=== PATIENT | male | born 1995 | race Caucasian/White ===

== ENCOUNTER 2025-01-21 16:47 | Inpatient (IN) | payer OTHER ==
[~2025-01-21] VITALS: Ht 175.3 cm; Wt 75.0 kg
[2025-01-21 10:12] VITALS: BP 113/73; PULSE 95; RESP 18; TEMP 98.3; O2SAT 99
[2025-01-21 18:21] LABS: BASOPHILS % (AUTO) 0.3 % (0.0-2.0); EOSINOPHILS % (AUTO) 0.2 % (1.0-6.0); HEMOGLOBIN 14.9 g/dL (13.5-17.5); LYMPHOCYTES # (AUTO) 1.2 K/uL (1.0-4.8); LYMPHOCYTES % (AUTO) 16.6 % (22.0-44.0); MEAN CORPUSCULAR HEMOGLOBIN 30.1 pg (26.0-34.0); MEAN CORPUSCULAR HGB CONC 34.7 G/dL (31.0-37.0); MEAN CORPUSCULAR VOLUME 87 fL (80-100); MONOCYTES # (AUTO) 0.5 K/uL (0.1-1.0); MONOCYTES % (AUTO) 7.2 % (2.0-9.0); NEUTROPHILS # (AUTO) 5.3 K/uL (1.8-7.7); NEUTROPHILS % (AUTO) 75.7 % (40.0-70.0); PLATELET COUNT (AUTO) 265 K/uL (150-450); RED BLOOD CELL COUNT(AUTO) 4.96 MIL/uL (4.50-5.90)
[2025-01-21 18:33] LABS: ANION GAP 8 mmol/L (8-16); CALCIUM, TOTAL 9.4 mg/dL (8.8-10.5); CARBON DIOXIDE 26 mmol/L (22-29); CHLORIDE 103 mmol/L (98-107); CREATININE 0.88 mg/dL (0.60-1.30); GLOMERULAR FILTR. RATE CALC > 60 mL/min (>60); GLUCOSE,RANDOM 104 mg/dL (70-110); POTASSIUM 3.5 mmol/L (3.5-5.1); SODIUM SERUM 137 mmol/L (136-145); UREA NITROGEN, BLOOD 16 mg/dL (7-18)
[2025-01-21] MEDS: LORazepam 2 MG/ML VIAL IVP ONE (20:12)
[2025-01-21] MEDS: ONDANSETRON HCL 4 MG/2 ML VIAL IVP ONE (20:13)
[2025-01-21] MEDS ORDERED: LOPERAMIDE HCL 2 MG CAPSULE PO PRN (21:15)
[2025-01-21] MEDS ORDERED: DICYCLOMINE HCL 10 MG CAPSULE PO PRN (21:15)
[2025-01-22] MEDS: LORazepam 2 MG/ML VIAL IVP PRN (00:26)
[2025-01-22 06:06] VITALS: BP 126/73; PULSE 78; RESP 18; TEMP 97.9; O2SAT 96
[2025-01-22] MEDS ORDERED: INFLUENZA VIRUS VACCINE TVS (6MO+) 2024-25/PF 45 MCG/0.5 ML SYRINGE IM. ONE (06:45)
[2025-01-22 13:37] LABS: PH,URINE DRUG SCREEN 6.5 (5.0-8.0)
[2025-01-22 13:42] LABS: ALCOHOL, URINE DRUG SCREEN NEGATIVE (NEGATIVE); AMPHET/METH SCREEN,URINE POSITIVE (NEGATIVE); BARBITURATE SCREEN, URINE NEGATIVE (NEGATIVE); BENZODIAZEPINES SCREEN,URINE NEGATIVE (NEGATIVE); CANNABINOID SCREEN,URINE NEGATIVE (NEGATIVE); COCAINE SCREEN,URINE NEGATIVE (NEGATIVE); METHADONE SCREEN, URINE NEGATIVE (NEGATIVE); OPIATE SCREEN,URINE NEGATIVE (NEGATIVE); PHENCYCLIDINE SCREEN,URINE NEGATIVE (NEGATIVE)
[2025-01-22 14:04] VITALS: BP 120/68; PULSE 71; RESP 18; TEMP 98.1; O2SAT 98
[2025-01-22 19:28] VITALS: BP 122/72; PULSE 87; RESP 20; TEMP 98.3; O2SAT 98
[2025-01-22] MEDS: TEMAZEPAM 15 MG CAPSULE PO SCH (20:46)
[2025-01-23 04:31] VITALS: BP 105/57; PULSE 65; RESP 18; TEMP 97.8; O2SAT 97
[2025-01-23] MEDS: HydrOXYzine HCL 25 MG TABLET PO PRN (16:49)
[2025-01-23] MEDS: METOCLOPRAMIDE HCL 5 MG/ML 2 ML VIAL IVP PRN (17:58)
[2025-01-23 20:18] VITALS: BP 111/63; PULSE 96; RESP 18; TEMP 98.8; O2SAT 96
[2025-01-24 05:15] VITALS: BP 108/55; PULSE 68; RESP 18; TEMP 97.8; O2SAT 96
[2025-01-24 08:26] VITALS: BP 122/76; PULSE 58; RESP 18; TEMP 98; O2SAT 99
== END 2025-01-24 16:50 | DRG 897 ==
LOC: EMS 16:49 → EDH 21:15 → 6N 22:04
PROVIDERS: ADMIT Internal Medicine; ATTEND Internal Medicine
DX: F11.23 Opioid dependence with withdrawal (principal); G47.00 Insomnia, unspecified; Z91.013 Allergy to seafood
CPT/HCPCS: 80048; 80307; 85025; 96374; 96375; 96376; 99285; J2060; J2405; J2765

== ENCOUNTER 2025-02-19 21:19 | Inpatient (IN) | payer OTHER ==
[~2025-02-19] VITALS: Ht 177.8 cm; Wt 75.7 kg
[2025-02-19 23:33] LABS: BASOPHILS % (AUTO) 0.4 % (0.0-2.0); EOSINOPHILS % (AUTO) 4.1 % (1.0-6.0); HEMATOCRIT 44.4 % (41-53); HEMOGLOBIN 14.8 g/dL (13.5-17.5); LYMPHOCYTES # (AUTO) 1.9 K/uL (1.0-4.8); MEAN CORPUSCULAR HEMOGLOBIN 29.2 pg (26.0-34.0); MEAN CORPUSCULAR HGB CONC 33.3 G/dL (31.0-37.0); MEAN CORPUSCULAR VOLUME 88 fL (80-100); MONOCYTES # (AUTO) 0.4 K/uL (0.1-1.0); MONOCYTES % (AUTO) 8.3 % (2.0-9.0); NEUTROPHILS # (AUTO) 2.2 K/uL (1.8-7.7); NEUTROPHILS % (AUTO) 47.2 % (40.0-70.0); PLATELET COUNT (AUTO) 292 K/uL (150-450); RED BLOOD CELL COUNT(AUTO) 5.07 MIL/uL (4.50-5.90); RED CELL DISTRIBUTION WIDTH 12.8 % (11.5-14.5); WHITE BLOOD COUNT (AUTO) 4.7 K/uL (4.5-11.0)
[2025-02-19 23:40] LABS: ANION GAP 3 mmol/L (8-16); CALCIUM, TOTAL 9.7 mg/dL (8.8-10.5); CARBON DIOXIDE 35 mmol/L (22-29); CHLORIDE 99 mmol/L (98-107); CREATININE 0.88 mg/dL (0.60-1.30); GLOMERULAR FILTR. RATE CALC > 60 mL/min (>60); GLUCOSE,RANDOM 86 mg/dL (70-110); POTASSIUM 4.6 mmol/L (3.5-5.1); SODIUM SERUM 137 mmol/L (136-145); UREA NITROGEN, BLOOD 11 mg/dL (7-18)
[2025-02-19] MEDS ORDERED: MAGNESIUM HYDROXIDE SUSPENSION 30 ML UDCUP PO PRN (23:45)
[2025-02-19] MEDS ORDERED: ACETAMINOPHEN 325 MG TABLET PO PRN (23:45)
[2025-02-19] MEDS ORDERED: ONDANSETRON HCL 4 MG/2 ML VIAL IVP PRN (23:45)
[2025-02-19] MEDS ORDERED: ZOLPIDEM TARTRATE 5 MG TABLET PO PRN (23:45)
[2025-02-19] MEDS ORDERED: HYDROCODONE/ACETAMINOPHEN 5-325 MG TABLET PO PRN (23:45)
[2025-02-19] MEDS ORDERED: BISACODYL 10 MG RECTAL RECTAL SUPPOSITORY PR PRN (23:45)
[2025-02-19] MEDS ORDERED: MORPHINE SULFATE 2 MG/ML SYRINGE IVP PRN (23:45)
[2025-02-19 23:48] LABS: LACTIC ACID 1.4 mmol/L (0.4-2.0)
[2025-02-19] MEDS: HEPARIN SODIUM,PORCINE 5,000 UNITS/ML VIAL SQ SCH (23:55)
[2025-02-19] MEDS: BACITRACIN 0.9 GM PACKET OINTMENT TP ONE (23:55)
[2025-02-19] MEDS: SODIUM CHLORIDE 0.9% 1,000 ML IV ONE (23:56)
[2025-02-19] MEDS: VANCOMYCIN 1.25 GM/WATER(PEG) 250 ML IV ONE (23:56)
[2025-02-20 04:00] VITALS: BP 105/71; PULSE 56; RESP 18; TEMP 97.5; O2SAT 98
[2025-02-20 07:17] LABS: ANION GAP 5 mmol/L (8-16); CALCIUM, TOTAL 9.1 mg/dL (8.8-10.5); CARBON DIOXIDE 31 mmol/L (22-29); CHLORIDE 103 mmol/L (98-107); CREATININE 0.85 mg/dL (0.60-1.30); GLOMERULAR FILTR. RATE CALC > 60 mL/min (>60); GLUCOSE,RANDOM 82 mg/dL (70-110); POTASSIUM 3.9 mmol/L (3.5-5.1); SODIUM SERUM 139 mmol/L (136-145); UREA NITROGEN, BLOOD 12 mg/dL (7-18)
[2025-02-20 07:40] VITALS: BP 102/67; PULSE 56; RESP 18; TEMP 97.5; O2SAT 100
[2025-02-20] MEDS: PANTOPRAZOLE SODIUM 40 MG DR TABLET PO SCH (08:21)
[2025-02-20] MEDS: DOCUSATE SODIUM 100 MG CAPSULE PO SCH (08:22)
[2025-02-20] MEDS ORDERED: SODIUM CHLORIDE 0.9% 500 ML IV ONE (08:27)
[2025-02-20] MEDS: VANCOMYCIN 1GM/WATER(PEG/NADA) 200 ML IV SCH (08:30)
[2025-02-20 20:12] VITALS: BP 103/74; PULSE 75; RESP 18; TEMP 98.1; O2SAT 97
[2025-02-21 05:27] VITALS: BP 108/79; PULSE 69; RESP 18; TEMP 97.5; O2SAT 95
[2025-02-21 07:46] LABS: ANION GAP 4 mmol/L (8-16); CALCIUM, TOTAL 9.3 mg/dL (8.8-10.5); CARBON DIOXIDE 29 mmol/L (22-29); CHLORIDE 103 mmol/L (98-107); CREATININE 0.79 mg/dL (0.60-1.30); GLOMERULAR FILTR. RATE CALC > 60 mL/min (>60); GLUCOSE,RANDOM 87 mg/dL (70-110); POTASSIUM 4.3 mmol/L (3.5-5.1); SODIUM SERUM 136 mmol/L (136-145); UREA NITROGEN, BLOOD 16 mg/dL (7-18); VANCOMYCIN,RANDOM 16.7 mcg/mL (25.0-50.0)
[2025-02-21 08:08] VITALS: BP 102/77; PULSE 53; RESP 17; TEMP 97.9; O2SAT 97
[2025-02-21 19:44] VITALS: BP 115/76; PULSE 74; RESP 20; TEMP 98.2; O2SAT 96
[2025-02-22 05:31] VITALS: BP 98/59; PULSE 71; RESP 18; TEMP 97.7; O2SAT 97
[2025-02-22 08:06] LABS: ANION GAP 6 mmol/L (8-16); CALCIUM, TOTAL 8.9 mg/dL (8.8-10.5); CARBON DIOXIDE 29 mmol/L (22-29); CHLORIDE 102 mmol/L (98-107); CREATININE 0.81 mg/dL (0.60-1.30); GLOMERULAR FILTR. RATE CALC > 60 mL/min (>60); GLUCOSE,RANDOM 88 mg/dL (70-110); SODIUM SERUM 137 mmol/L (136-145); UREA NITROGEN, BLOOD 19 mg/dL (7-18)
[2025-02-22 08:50] VITALS: BP 102/65; PULSE 57; RESP 18; TEMP 97.7; O2SAT 98
[2025-02-22] MEDS ORDERED: ACET-2247 PO (13:32)
[2025-02-22] MEDS ORDERED: CEPH-558 PO (13:33)
[2025-02-22] MEDS ORDERED: CLIN300C58 PO (13:40)
== END 2025-02-22 16:25 | DRG 603 ==
LOC: EMS 21:19 → EDH 23:41 → 6S 02-20 02:40
PROVIDERS: ADMIT Internal Medicine; ATTEND Internal Medicine
PROC: 3E1CX8Z Irrigation of Eye using Irrigating Substance (ICD-10-PCS; principal; 2025-02-20)
DX: L03.211 Cellulitis of face (principal); L02.01 Cutaneous abscess of face; Z79.899 Other long term (current) drug therapy; Z91.013 Allergy to seafood
CPT/HCPCS: 80048; 80202; 83605; 85025; 87081; 96365; 99285; G0378; J1644; J7030; J7040